=== PATIENT | male | born 1970 ===

== ENCOUNTER 2016-10-15 08:57 | Outpatient (CLI) | payer OTHER ==
--- NOTE | 2016-10-15 16:01 | Magnetic Resonance Report ---
MRI RIGHT KNEE WITHOUT CONTRAST: 10/15/16 CLINICAL: Knee pain. TECHNIQUE: Sagittal proton density fat sat and T2, coronal T2 fat sat and proton density and axial gradient T2*sequences on a 1.5 Sandhya magnet. FINDINGS: Prominent horizontal hyperintense signal in the body of the lateral meniscus extends into both anterior and posterior horns and is identified on both sagittal and coronal sequences. Additional abnormal hyperintense signal on the superior surface of the posterior horn of the lateral meniscus. Subtle oblique signal in the posterior horn of the medial meniscus extends to the inferior articular surface. The cruciate ligaments and collateral ligaments are intact. A focal defect in the lateral femoral cartilage is demonstrated on the coronal T2 fat-sat sequence. The femoral cartilage appears otherwise intact. Intact collateral ligaments. Intact posterolateral corner structures including the popliteus tendon. There is a large knee joint effusion with fluid in the suprapatellar bursa. A small popliteal cyst distends the gastrocnemius semimembranosus bursa. It measures approximately 4 cm in length. Intact patella within normal cartilage, tendon and retinaculum. Normal marrow signal with no bone contusion or fracture. Soft tissue edema of the anterior infrapatellar soft tissues. IMPRESSION: 1. Bilateral meniscal tears with a large horizontal tear of the lateral meniscus and a smaller oblique tear of the posterior horn of the medial meniscus. 2. No ligamentous injury. 3. Focal defect in the lateral femoral cartilage. 4. Large knee joint effusion and a small popliteal cyst.
== END 2016-10-15 08:58 | disposition home or self-care (01) ==
LOC: SPVIMAG 08:57
PROVIDERS: ATTEND Family Medicine Adult Medicine
DX: M23.222 Derangement of posterior horn of medial meniscus due to old tear or injury, left knee (principal); M23.221 Derangement of posterior horn of medial meniscus due to old tear or injury, right knee; M23.262 Derangement of other lateral meniscus due to old tear or injury, left knee; M23.261 Derangement of other lateral meniscus due to old tear or injury, right knee; M71.21 Synovial cyst of popliteal space [Baker], right knee; M25.461 Effusion, right knee
CPT/HCPCS: 73721